=== PATIENT | male | born 1995 | race Hispanic/Latino ===

== ENCOUNTER 2019-09-22 01:08 | Emergency (ER) | payer SELFPAY ==
[2019-09-22] MEDS ORDERED: Adacel (T-DAP) 0.5 ML SYRINGE ONE (01:27)
[2019-09-22] MEDS ORDERED: Ibuprofen 200 MG TAB ONE (01:27)
== END 2019-09-22 02:07 | disposition home or self-care (01) ==
LOC: ERS 01:08
DX: S01.111A Laceration without foreign body of right eyelid and periocular area, initial encounter (principal); Z23 Encounter for immunization; W01.198A Fall on same level from slipping, tripping and stumbling with subsequent striking against other object, initial encounter
CPT/HCPCS: 12013; 90471; 90715

== ENCOUNTER 2019-09-28 16:10 | Emergency (ER) | payer SELFPAY | END 2019-09-28 16:47 | disposition home or self-care (01) | LOC: ERS 16:10 | DX: S01.111D Laceration without foreign body of right eyelid and periocular area, subsequent encounter (principal) ==

== ENCOUNTER 2021-05-18 09:09 | Emergency (ER) | payer SELFPAY | END 2021-05-18 11:30 | disposition home or self-care (01) | LOC: ERS 09:09 | DX: L03.012 Cellulitis of left finger (principal) ==